=== PATIENT | female | born 1950 | race Caucasian/White ===

== ENCOUNTER → 2018-05-01 | Outpatient (CLI) | payer MEDICARE, OTHER ==
--- NOTE | 2018-05-01 18:55 | RADIOLOGY IMAGING REPORT ---
FACILITY: [facility] PATIENT NAME: Eliana Queen : 1950 MR: [id number] V: [id number] EXAM DATE: ORDERING PHYSICIAN: STEPHAN MACKENZIE TECHNOLOGIST: Location: [facility] Patient: Eliana Queen : 1950 Visit/Account:[id number] Date of Sevice: 05/01/2018 THYROID EXAMINATION: Thyroid ultrasound HISTORY: Hypothyroidism COMPARISON: None. FINDINGS: Thyroid size: Right lobe 5 x 1.2 x 1.0 cm Left lobe 4.1 x 0.8 x 0.9 cm Isthmus 0.3 cm Thyroid nodules: Right lobe - there is an isoechoic 7 x 5 mm nodule in the inferior lateral aspect of the right thyroid gland. Left lobe - there is a 4 x 3 mm isoechoic nodule in the left thyroid gland Isthmus - none Thyroid vascularity: normal IMPRESSION: 2 small isoechoic low suspicious nodules (5-10% malignancy risk). These are typically of no concern u ntil greater than 1.5 cm. Report Dictated By: Les Mckeon MD at 05/01/2018 6:44 PM Report E-Signed By: Les Mckeon MD at 05/01/2018 6:50 PM WSN:[id number]
== END ==
LOC: US 04-29 02:43
PROVIDERS: ATTEND Family Medicine
DX: Z12.31 Encounter for screening mammogram for malignant neoplasm of breast (principal); E04.2 Nontoxic multinodular goiter; E87.5 Hyperkalemia
CPT/HCPCS: 76536

== ENCOUNTER → 2019-03-31 | Outpatient (CLI) | payer MEDICARE, OTHER ==
--- NOTE | 2019-03-31 09:18 | RADIOLOGY IMAGING REPORT ---
FACILITY: [facility] [place] PATIENT NAME: Eliana Queen : 1950 MR: [id number] V: [id number] EXAM DATE: ORDERING PHYSICIAN: STEPHAN MACKENZIE TECHNOLOGIST: Location: [facility] Patient: Eliana Queen : 1950 Visit/Account:[id number] Date of Sevice: 03/31/2019 DEXA Scan Clinical history: Osteoporosis screening. Comparison: 03/28/2017. LUMBAR SPINE: Bone mineral density (BMD) measured in the lumbar spine correlates with a T-score of -2.9 and a Z-sco re of -1.0 which is osteoporosis as defined by the World Health Organization. The corresponding risk of fracture in the lumbar spine is increased compared with a young adult reference population. Lumb ar spine bone density has increased by 12.1% compared to previous. Note that degenerative changes ma y falsely increase bone density. LEFT FEMORAL NECK: Bone mineral density (BMD) measured in the femoral neck correlates with a T-score of -2.3 and a Z-sco re of -0.6 which is osteopenia as defined by the World Health Organization. Bone mineral density (BMD) measured in the femoral neck region is 0.712 g/cm2. LEFT TOTAL HIP: Total hip bone mineral density (BMD) correlates with a T-score of -2.1 and a Z-score of -0.6 which is osteopenia as defined by the World Health Organization. Total hip bone density has increased by 4.4 % compared to previous. The corresponding risk of fracture in the hip is increased compared with a young adult [facility] IMPRESSION: 1. Lumbar spine: Osteoporosis. Lumbar spine bone density has increased by 12.1% compared to previo us. 2. Left femoral neck: Osteopenia. 3. Left femoral neck: Bone Mineral Density is 0.712 g/cm2. 4. Left total hip: Osteopenia. Total hip bone density has increased by 4.4% compared to previous. FRAX WHO Fracture Risk Assessment Tool link: <http://www.shef.ac.uk/FRAX/tool.jsp?locationValue=9> PLEASE NOTE: 1) The World Health Organization defines low BMD as follows: T-score Normal > -1 Osteopenia < -1 and > -2.5 Osteoporosis < -2.5 without fractures Established osteoporosis < -2.5 with fractures 2) In general, you may wish to consider: Diagnosis Treatment Follow-up DEXA Normal BMD Prevention 2-3 years Osteopenia Prevention/therapy 1-2 years Osteoporosis Therapy Yearly 3) Fracture risk estimated from the T-score is more accurate for vertebral fractures (often spontane ous) than for hip fractures. Report Dictated By: Ramos Yanez MD at 03/31/2019 9:09 AM Report E-Signed By: Ramos Yanez MD at 03/31/2019 9:12 AM MATHIEUN:YENNIFER
--- NOTE | 2019-04-06 10:04 | RADIOLOGY IMAGING REPORT ---
FACILITY: [facility] PATIENT NAME: FRANCESCA RIOJAS : [id number] MR: [id number] V: [id number] EXAM DATE: [id number] ORDERING PHYSICIAN: STEPHAN MACKENZIE TECHNOLOGIST: Priti Tucker PROCEDURE: BILATERAL DIGITAL SCREENING MAMMOGRAM WITH CAD ASSISTED INTERPRETATION & 3D TOMOSYNTHESIS. REASON FOR STUDY: Screening. COMPARISON: [facility]. VIEWS OBTAINED: 2D & 3D full field CC & MLO projections. BREAST DENSITY: Scattered fibroglandular densities are present in both breasts. MAMMOGRAM FINDINGS: Benign appearing asymmetries are scattered bilaterally, unchanged. IMPRESSION: BIRADS 1: Negative. DIAGNOSTIC CATEGORY 1--NEGATIVE. RECOMMENDATIONS: ROUTINE MAMMOGRAM AND CLINICAL EVALUATION IN 1YR. Dictated by: Ramos Yanez M.D. on 03/31/2019 at 9:06 Transcribed by: SOY on 03/31/2019 at 10:08 Approved by: Radha Melchor M.D. on 04/06/2019 at 10:00 [facility]
== END ==
LOC: MAMO 08:22
PROVIDERS: ATTEND Family Medicine
DX: Z12.31 Encounter for screening mammogram for malignant neoplasm of breast (principal); M85.88 Other specified disorders of bone density and structure, other site; Z80.3 Family history of malignant neoplasm of breast
CPT/HCPCS: 77063; 77067; 77080